=== PATIENT | female | born 1990 | race Two or more races ===

== ENCOUNTER 2018-10-01 22:09 | Emergency (ER) | payer OTHER ==
[~2018-10-01] VITALS: Ht 157.5 cm; Wt 56.2 kg
[~2018-10-01 22:09] MED LIST: CEFADROXIL500 MG PO; ERYTHROMYCIN500 MG; KETO10TA2 PO
[2018-10-02] MEDS ORDERED: PEPCID AC20 MG PO (04:17)
[2018-10-02] MEDS ORDERED: PROMETHAZINE HC25 MG PO (04:17)
== END 2018-10-02 04:26 | disposition home or self-care (01) ==
LOC: ER 22:09
DX: K29.70 Gastritis, unspecified, without bleeding (principal)

== ENCOUNTER 2019-08-07 22:36 | Emergency (ER) | payer OTHER ==
[~2019-08-07] VITALS: Ht 157.5 cm; Wt 56.7 kg
[~2019-08-07 22:36] MED LIST changes: +PEPCID AC20 MG PO; +PROMETHAZINE HC25 MG PO
[2019-08-07] MEDS ORDERED: PREVACID30 MG (23:09)
[2019-08-07] MEDS ORDERED: PROBIOTICO (23:12)
== END 2019-08-08 06:32 | disposition home or self-care (01) ==
LOC: ER 22:36
DX: M94.0 Chondrocostal junction syndrome [Tietze] (principal)

== ENCOUNTER 2021-08-05 20:34 | Emergency (ER) | payer OTHER ==
[~2021-08-05] VITALS: Ht 160 cm; Wt 47.6 kg
[~2021-08-05 20:34] MED LIST changes: +PREVACID30 MG; +PROBIOTICO
[2021-08-05] MEDS ORDERED: PEPCID20 MG PO (23:47)
[2021-08-05] MEDS ORDERED: CARAFATE1 GM PO (23:47)
[2021-08-05] MEDS ORDERED: PROTONIX20 MG PO (23:47)
== END 2021-08-06 00:27 | disposition home or self-care (01) ==
LOC: ER 20:34
DX: K29.60 Other gastritis without bleeding (principal); R10.9 Unspecified abdominal pain; R11.2 Nausea with vomiting, unspecified

== ENCOUNTER 2022-01-17 19:43 | Emergency (ER) | payer OTHER ==
[~2022-01-17] VITALS: Ht 157.5 cm; Wt 52.2 kg
[~2022-01-17 19:43] MED LIST changes: +CARAFATE1 GM PO; +PEPCID20 MG PO; +PROTONIX20 MG PO
== END 2022-01-17 23:29 | disposition home or self-care (01) ==
LOC: ER 19:43
DX: S99.922A Unspecified injury of left foot, initial encounter (principal); S93.402A Sprain of unspecified ligament of left ankle, initial encounter; S96.912A Strain of unspecified muscle and tendon at ankle and foot level, left foot, initial encounter; V19.9XXA Pedal cyclist (driver) (passenger) injured in unspecified traffic accident, initial encounter; Y93.55 Activity, bike riding; Y99.9 Unspecified external cause status

== ENCOUNTER 2025-08-02 16:19 | Emergency (ER) | payer OTHER ==
[~2025-08-02] VITALS: Ht 157.5 cm; Wt 59.9 kg
[2025-08-02] MEDS ORDERED: PANTOPRAZOLE SO40 MG PO (16:55)
[2025-08-02] MEDS ORDERED: ONDANSETRON HCL 2 MG/ML VIAL IV STA (17:10)
[2025-08-02] MEDS ORDERED: FAMOTIDINE/PF 20 MG/2 ML VIAL IV STA (17:10)
[2025-08-02] MEDS ORDERED: 0.9 % SODIUM CHLORIDE 1,000 ML IV SCH (17:15)
[2025-08-02 18:41] LABS: BASO % 0.2 % (0.1-1.2); EOS # 0.04 (0.04-0.54); EOS % 0.3 % (0.7-7.0); LYMPH # 1.28 (1.18-3.74); LYMPH % 10.0 % (19.3-53.1); MEAN PLATELET VOLUME 11.00 fl (9.4-12.4); MONO # 0.67 (0.24-0.82); MONO % 5.2 % (4.7-12.5); NEUT # 10.78 (1.56-6.13); NEUT % 83.9 % (34.0-71.1); RED CELL DISTRIBUTION WIDTH 12.5 % (11.6-14.4)
[2025-08-02 19:05] LABS: ALT/SGPT 25.0 U/L (12-78); AST/SGOT 15.0 U/L (15-37); BILIRUBIN TOTAL 0.71 mg/dL (0.3-1.2); BUN CREA RATIO 12.0 (7.0-25.0); CREATININE SERUM 0.82 mg/dL (0.55-1.02); GFR 80.79; GLOBULINA 4.1 G/DL (2.4-3.5); GLUCOSE FASTING 103.0 mg/dL (65-100); OSMOLALITY SERUM 281.0 MOSM/KG (275-295)
[2025-08-02] MEDS ORDERED: CEFTRIAXONE SODIUM 2,000 MG VIAL IV STA (19:11)
[2025-08-02 19:33] LABS: COVID-19 AG NEGATIVE (NEGATIVE)
[2025-08-02] MEDS ORDERED: AMOXICILLIN500 M1 PO (19:38)
[2025-08-02] MEDS ORDERED: ORPHENADRINE CITRATE 30 MG/ML AMPUL IV STA (20:00)
[2025-08-02] MEDS ORDERED: KETOROLAC TROMETHAMINE 30 MG VIAL IM STA (20:00)
== END 2025-08-02 20:30 | disposition home or self-care (01) ==
LOC: ER 16:19
PROVIDERS: Physician Assistant Medical
DX: J03.80 Acute tonsillitis due to other specified organisms (principal); K31.84 Gastroparesis; K29.70 Gastritis, unspecified, without bleeding; E16.1 Other hypoglycemia; R79.82 Elevated C-reactive protein (CRP); Z20.822 Contact with and (suspected) exposure to COVID-19